=== PATIENT | female | born 1985 ===

== ENCOUNTER 2016-12-20 09:54 | Outpatient (CLI) | payer OTHER | END 2016-12-20 23:00 | LOC: LAB SRH 09:54 | DX: Z32.01 Encounter for pregnancy test, result positive (principal) | CPT/HCPCS: 90004; 90074; 90078; 90261; 90364; 90599; 90600; 90605; 90606; 90710; 90851; 92863; 93140; 98480; 99777 ==

== ENCOUNTER → 2017-03-15 | Outpatient (CLI) | payer OTHER ==
--- NOTE | 2017-03-15 10:45 | DIAGNOSTIC IMAGING REPORT ---
PROCEDURE: US OB DETAILED ANATOMIC INDICATION: ANATOMY TECHNIQUE: Willams scale, color, and spectral Doppler images of the second trimester gravid uterus were obtained. COMPARISON: None. FINDINGS: A single living intrauterine is in breech presentation. There is regular cardiac activity at a rate of 136 beats per minute. The placenta is anterior and away from the internal cervical os. The cervix is closed measuring approximately 3.5 cm in length. The amniotic fluid volume is subjectively normal. Biparietal diameter 4.9 cm at 20 weeks and 6 days Head circumference 18.4 cm at 20 weeks and 6-day Abdominal circumference 17.4 cm at 22 weeks and 2 days Femur length 3.5 cm at 21 weeks and 0-day Head to abdominal circumference ratio and femur length to abdominal circumference ratios are normal. Estimated weight 435 Grams Composite gestational age 21 weeks and 2 days, LANETTE 07/24/2017 There was visualization of a number of normal structures including the intracranial contents, facial features, nuchal region, spine, four-chamber heart and outflow tracts to the extent that could be visualized, diaphragm, fluid-filled stomach, kidneys, abdomen, urinary bladder, upper and lower extremities, and genitals. A three-vessel umbilical cord, normal and placental cord insertion sites were seen. IMPRESSION: 1. Single living intrauterine with a composite gestational age of 21 weeks and 2 days, LANETTE 07/24/2017 2. Symmetric and normal anatomy.
== END ==
LOC: US SRH 03-07 09:00
DX: Z34.92 Encounter for supervision of normal pregnancy, unspecified, second trimester (principal); Z3A.21 21 weeks gestation of pregnancy

== ENCOUNTER 2017-04-19 09:48 | Outpatient (CLI) | payer OTHER | END 2017-04-19 23:00 | LOC: LAB SRH 09:48 | DX: Z34.02 Encounter for supervision of normal first pregnancy, second trimester (principal) | CPT/HCPCS: 90039; 90074; 91162; 91163 ==

== ENCOUNTER 2017-04-29 11:58 | Outpatient (CLI) | payer OTHER | END 2017-04-29 14:40 | disposition short-term general hospital (02) | LOC: OBC SRH 11:58 → OB SRH 11:59 → OBC SRH 14:40 | PROC: 4A0HXCZ Measurement of Products of Conception, Cardiac Rate, External Approach (ICD-10-PCS; principal; 2017-04-29) | DX: O42.913 Preterm premature rupture of membranes, unspecified as to length of time between rupture and onset of labor, third trimester (principal); Z3A.28 28 weeks gestation of pregnancy ==